=== PATIENT | male | born 1945 | race Caucasian/White ===

== ENCOUNTER 2018-09-14 13:58 | Inpatient (IN) | payer OTHER ==
[~2018-09-14] VITALS: Ht 180.3 cm; Wt 112.8 kg
[2018-09-14] MEDS ORDERED: SODIUM CHLORIDE 0.9% 1,000 ML IVB ONE (14:37)
[2018-09-14 15:06] LABS: Basophils # (auto) 0 uL; Basophils % (auto) 0.2 % (0.0-2.0); Eosinophils # (auto) 0 uL; Eosinophils % (auto) 0.2 % (0.0-7.0); Hemoglobin 13.8 g/dL (13.5-17.5); Lymphocytes # (auto) 1.2 uL; Lymphocytes % (auto) 8.1 % (10.0-50.0); Mean Corpuscular Hemoglobin 29.5 pg (28.0-32.0); Mean Corpuscular Hgb Conc. 32.9 g/dL (32.0-36.0); Mean Corpuscular Volume 89.7 fL (80.0-100.0); Monocytes # (auto) 1.2 uL; Neutrophils # (auto) 12.7 uL; Neutrophils % (auto) 83.5 % (37.0-80.0); Platelet Count (auto) 294 10^3/uL (140-450); Red Blood Cells 4.68 10^6/uL (4.5-5.90); Red Cell Distribution Width 15.3 % (11.8-14.3); White Blood Cell 15.2 10^3/uL (4.4-10.8)
[2018-09-14 15:56] LABS: INR 1.03 (0.9-1.15); Partial Thromboplastin Time 24.6 sec (23.64-32.05)
[2018-09-14 16:07] LABS: Albumin 3.6 g/dL (3.4-5.0); Calcium 8.6 mg/dL (8.5-10.1); Potassium 3.3 mmol/L (3.5-5.1)
[2018-09-14 16:12] LABS: BUN/Creatinine Ratio 22.2; Total Protein 6.9 g/dL (6.4-8.2)
[2018-09-14] MEDS ORDERED: ONDANSETRON HCL 4 MG/2 ML VIAL IV PRN (17:30)
[2018-09-14] MEDS ORDERED: MORPHINE SULF INJ 2 MG/ML SYRINGE 1ML IV PRN (17:30)
[2018-09-14] MEDS ORDERED: DEXTROSE (50%) 50ML SYRG IV PRN (17:30)
[2018-09-14] MEDS ORDERED: ACETAMINOPHEN 500 MG TAB PO PRN (17:30)
[2018-09-14] MEDS ORDERED: NITROGLYCERIN 0.4 MG SL TAB SL PRN (17:30)
[2018-09-14] MEDS ORDERED: hydrALAZINE HCL 20 MG/ML VL IV PRN (17:30)
[2018-09-14] MEDS: cefTRIAXone 1GM/50ML D5W 50 ML IV SCH (20:06)
[2018-09-14] MEDS: TAMSULOSIN HYDROCHLORIDE 0.4 MG CAP PO SCH (20:13)
[2018-09-14] MEDS: HYDROcodone-ACET 5/325MG TAB PO PRN (20:16)
--- NOTE | 2018-09-14 21:30 | NUR ---
OPENING NOTE RECEIVED PATIENT FROM ER. NO REPORT RECEIVED. ASSUMING ROLE OF CARE OF PATIENT AT THIS TIME. PATIENT SHOWING NO SIGN OF DISTRESS, SHORTNESS OF BREATH, AND PATIENT STATES PAIN IS 6/10 FROM HEADACHE. PATIENT WILL BE MEDICATED PER PAIN PROTOCOL WHEN AVAILABLE. PATIENT EDUCATED ON PLAN OF CARE FOR THE NIGHT AND PATIENT VERBALIZED UNDERSTANDING. BED LOWERED, CALL LIGHT WITHIN REACH, AND PATIENT EDUCATED ON CALLING BEFORE GETTING OUT OF BED, BED ALARM ON, PATIENT WILL BE ROUNDED ON EVERY HOUR AND NEEDED.
[2018-09-14] MEDS: ATORVASTATIN 20 MG TAB PO SCH (21:58)
[2018-09-14] MEDS: InsuLIN REG 1unit/0.01ml Soln (100units/ml) SC SCH (21:59)
[2018-09-14] MEDS: ACCU-CHEK COMFORT CURVE STRIP VI SCH (21:59)
[2018-09-14] MEDS: SOD CHL 0.9%/ KCL 20MEQ 1,000 ML IV SCH (21:59)
[2018-09-14 22:00] VITALS: BP 101/55
[2018-09-14 22:10] VITALS: BP 101/55
[2018-09-14] MEDS: MORPHINE SULF INJ 2 MG/ML SYRINGE 1ML IV PRN (22:31)
[2018-09-15] MEDS ORDERED: TRAZ100T2 PO (00:32)
[2018-09-15] MEDS ORDERED: LISI-285 PO (00:32)
[2018-09-15] MEDS ORDERED: METF-371 PO (00:32)
[2018-09-15] MEDS ORDERED: ATOR1TAB PO (00:32)
[2018-09-15] MEDS ORDERED: TIZA4TAB9 PO (00:32)
[2018-09-15] MEDS ORDERED: ESCI10TA PO (00:32)
[2018-09-15] MEDS ORDERED: INS7030I SC (00:32)
[2018-09-15] MEDS: MORPHINE SULF INJ 2 MG/ML SYRINGE 1ML IV PRN ×3 (02:14→21:19)
[2018-09-15] MEDS: SOD CHL 0.9%/ KCL 20MEQ 1,000 ML IV SCH ×2 (03:30→13:37)
[2018-09-15 05:01] VITALS: BP 97/58
[2018-09-15] MEDS: ACCU-CHEK COMFORT CURVE STRIP VI SCH ×4 (06:10→21:38)
[2018-09-15] MEDS: InsuLIN REG 1unit/0.01ml Soln (100units/ml) SC SCH ×4 (06:10→21:36)
[2018-09-15 06:29] LABS: Basophils # (auto) 0.1 uL; Basophils % (auto) 0.6 % (0.0-2.0); Eosinophils # (auto) 0.1 uL; Eosinophils % (auto) 1.2 % (0.0-7.0); Hematocrit 38.5 % (41.0-53.0); Hemoglobin 12.8 g/dL (13.5-17.5); Lymphocytes # (auto) 2.4 uL; Lymphocytes % (auto) 24.2 % (10.0-50.0); Mean Corpuscular Hemoglobin 29.5 pg (28.0-32.0); Mean Corpuscular Hgb Conc. 33.3 g/dL (32.0-36.0); Mean Corpuscular Volume 88.5 fL (80.0-100.0); Monocytes % (auto) 10.2 % (0.0-12.0); Neutrophils # (auto) 6.4 uL; Neutrophils % (auto) 63.8 % (37.0-80.0); Platelet Count (auto) 264 10^3/uL (140-450); Red Blood Cells 4.35 10^6/uL (4.5-5.90)
[2018-09-15 07:00] LABS: Potassium 3.3 mmol/L (3.5-5.1)
--- NOTE | 2018-09-15 07:05 | NUR ---
Opening Shift Note Assumed care of patient, awake and alert. No S/S of distress/SOB or pain. Instructed on POC and to call for assist PRN, will continue to monitor for changes Q1hr and PRN. Bed locked in lowest position with two side rails up and call light in reach. instructed patient on the plan of care and to call as needed. Educated patient on the need to call before exiting bed.
[2018-09-15 07:22] LABS: BUN/Creatinine Ratio 27.1; Bilirubin, Total 0.8 mg/dL (0.2-1.0); Calcium 8.1 mg/dL (8.5-10.1); Total Protein 6.1 g/dL (6.4-8.2)
[2018-09-15 08:00] VITALS: BP 115/74
[2018-09-15] MEDS: HYDROcodone-ACET 5/325MG TAB PO PRN (08:49)
[2018-09-15 09:00] VITALS: BP 92/50
[2018-09-15] MEDS: cefTRIAXone 1GM/50ML D5W 50 ML IV SCH (09:54)
[2018-09-15] MEDS: FAMOTIDINE 20 MG TAB PO SCH (09:54)
[2018-09-15] MEDS: ASPirin-EC 81 mg tab PO SCH (09:55)
[2018-09-15] MEDS: LISINOPRIL 10 MG TAB PO SCH (10:00)
[2018-09-15] MEDS ORDERED: POTASSIUM CHL 20 Meq TABLET PO ONE (10:30)
[2018-09-15] MEDS ORDERED: OPTISON 3ml Vial for INJ IV ONE (11:43)
[2018-09-15 12:30] VITALS: BP 102/62
--- NOTE | 2018-09-15 16:34 | NUR ---
CALLED AND SPOKE TO SHARMAINE ARRIAZA AND GOT ORDERS FOR NORCO 7.5 MG AND ONE TIME DOSE OF TORADOL 30 MG IV ONCE
[2018-09-15] MEDS ORDERED: KETOROLAC TROMETH 15 mg/ml 1ML VL IV ONE (16:45)
[2018-09-15] MEDS ORDERED: HYDROcodone-ACET 7.5/325MG TAB PO PRN (16:45)
[2018-09-15 17:11] VITALS: BP 98/66
--- NOTE | 2018-09-15 17:54 | NUR ---
SPOKE TO DAUGHTER LOBO AND UPDATED ON PLAN OF CARE, ANSWERED ALL QUESTIONS AND CONCERNS.
--- NOTE | 2018-09-15 17:54 | NUR ---
PAGED HOSPITALIST SHARMAINE ARRIAZA TO DISCUSS PATIENTS CONCERNS OF NOT RECEIVING HIS INSULIN 70/30 16 UNITS BID. PER SHARMAINE ARRIAZA START PATIENT OFF AT 1/2 THE NORMAL DOSE DUE TO DIET CONTROL. 70/30 8 UNITS BID. WILL IMPLEMENT ORDERS.
[2018-09-15] MEDS: TAMSULOSIN HYDROCHLORIDE 0.4 MG CAP PO SCH (18:00)
[2018-09-15] MEDS ORDERED: HYDROmorphone HCL 2 MG/ML VL IV ONE (18:15)
--- NOTE | 2018-09-15 18:15 | NUR ---
SHARMAINE ARRIAZA ROUNDING TO SEE PATIENT. ANSWERED ALL QUESTIONS AND CONCERNS. ORDERS ARE BEING PLACED AND PATIENT VERBALIZED UNDERSTANDING.
[2018-09-15] MEDS: LORazepam 0.5 MG TAB PO PRN (18:16)
--- NOTE | 2018-09-15 18:22 | NUR ---
ADMINISTERED ATIVAN ABD ONE TIME DOSE OF DILAUDID 0.5 MG. PATIENT EATING DINNER AND HAPPY WITH EXTRA PORTION GIVEN. PER LORAINE ARRIAZA DIET WAS INCREASED SO PATIENT WILL GET MORE TO EAT.
--- NOTE | 2018-09-15 19:20 | NUR ---
Opening Shift Note Report received from day shift RN. Assumed care of patient. patient sitting in bed awake and alert x4. Family at bedside. No S/S of distress/SOB noted. Patient complained of pain to neck area. Will medicate as ordered. Instructed on POC and to call for assistance when getting out of bed. Bed left in lowest position and call light left within reach. Will continue to monitor for changes Q1hr and PRN.
--- NOTE | 2018-09-15 19:22 | NUR ---
DR. SILVA AT BEDSIDE DISCUSSING PLAN OF CARE WITH PATIENT AND FAMILY.
[2018-09-15] MEDS: ATORVASTATIN 20 MG TAB PO SCH (21:18)
[2018-09-15 21:51] VITALS: BP 117/72
[2018-09-16] MEDS: MORPHINE SULF INJ 2 MG/ML SYRINGE 1ML IV PRN ×4 (01:46→23:39)
[2018-09-16] MEDS: SOD CHL 0.9%/ KCL 20MEQ 1,000 ML IV SCH ×3 (02:18→23:39)
[2018-09-16 04:51] VITALS: BP 102/58
[2018-09-16] MEDS: LORazepam 0.5 MG TAB PO PRN (05:18)
[2018-09-16 06:48] LABS: BUN/Creatinine Ratio 25.3; Magnesium 1.9 mg/dL (1.6-2.6); Potassium 4.4 mmol/L (3.5-5.1)
[2018-09-16] MEDS: InsuLIN REG 1unit/0.01ml Soln (100units/ml) SC SCH ×4 (07:00→21:38)
--- NOTE | 2018-09-16 07:15 | NUR ---
Opening Shift Note Assumed care of patient, who is asleep wt this time will come back and re assess. No S/S of distress/SOB or pain, will continue to monitor for changes Q1hr and PRN. Bed locked in lowest position with two side rails up and call light in reach.
--- NOTE | 2018-09-16 07:51 | NUR ---
closing note Endorsed care to day shift RN. patient sitting in bed no s/s of distress or SOB noted.
[2018-09-16 08:00] VITALS: BP 108/67
[2018-09-16] MEDS: INSULIN 70/30 1unit/0.01ml Susp (100units/ml) SC SCH ×2 (08:20→17:55)
[2018-09-16] MEDS: cefTRIAXone 1GM/50ML D5W 50 ML IV SCH (08:21)
[2018-09-16 09:00] VITALS: BP 108/67
[2018-09-16] MEDS: LISINOPRIL 10 MG TAB PO SCH (10:00)
[2018-09-16] MEDS: FAMOTIDINE 20 MG TAB PO SCH (10:00)
[2018-09-16] MEDS: ASPirin-EC 81 mg tab PO SCH (10:44)
[2018-09-16] MEDS: ACCU-CHEK COMFORT CURVE STRIP VI SCH ×4 (11:30→21:38)
--- NOTE | 2018-09-16 12:41 | NUR ---
ROUNDS DISCONNECTED PATIENT FROM IV FOR MRI, PATIENT DOWN AT MRI.
--- NOTE | 2018-09-16 12:52 | NUR ---
CALLED ECHO DEPARTMENT FOR UPDATE ON ECHO RESULTS, NO ANSWER AT EXT [id number] TRIED AGAIN HAVING PBX TRANSFER AND AGAIN NO ANSWER, WILL TRY AGAIN LATER THIS AFTERNOON.
[2018-09-16 13:00] VITALS: BP 109/65
--- NOTE | 2018-09-16 16:10 | NUR ---
EEG COMPLETED AT BEDSIDE. JAMES SMILEY AWARE.
[2018-09-16 16:38] VITALS: BP 109/64
[2018-09-16] MEDS: TAMSULOSIN HYDROCHLORIDE 0.4 MG CAP PO SCH (16:57)
--- NOTE | 2018-09-16 19:10 | NUR ---
Opening Shift Note Report received from day shift RN. Assumed care of patient. patient sitting in bed awake and alert x4. No S/S of distress/SOB noted. Patient complained of pain to neck area. Will medicate as ordered. Instructed on POC and to call for assistance when getting out of bed. Bed left in lowest position and call light left within reach. Will continue to monitor for changes Q1hr and PRN.
[2018-09-16] MEDS: ATORVASTATIN 20 MG TAB PO SCH (21:31)
[2018-09-16 22:00] VITALS: BP 119/81
[2018-09-17 04:50] VITALS: BP 128/73
[2018-09-17] MEDS: SOD CHL 0.9%/ KCL 20MEQ 1,000 ML IV SCH (05:30)
[2018-09-17 06:22] LABS: Basophils # (auto) 0.1 uL; Basophils % (auto) 0.8 % (0.0-2.0); Eosinophils # (auto) 0.2 uL; Hematocrit 39.1 % (41.0-53.0); Hemoglobin 13.2 g/dL (13.5-17.5); Lymphocytes # (auto) 2.2 uL; Lymphocytes % (auto) 27.5 % (10.0-50.0); Mean Corpuscular Hemoglobin 30.1 pg (28.0-32.0); Mean Corpuscular Hgb Conc. 33.7 g/dL (32.0-36.0); Mean Corpuscular Volume 89.3 fL (80.0-100.0); Monocytes # (auto) 0.7 uL; Monocytes % (auto) 8.9 % (0.0-12.0); Neutrophils # (auto) 4.8 uL; Neutrophils % (auto) 60.8 % (37.0-80.0); Platelet Count (auto) 257 10^3/uL (140-450); Red Blood Cells 4.38 10^6/uL (4.5-5.90); Red Cell Distribution Width 15.2 % (11.8-14.3); White Blood Cell 7.8 10^3/uL (4.4-10.8)
[2018-09-17 06:39] LABS: Potassium 4.3 mmol/L (3.5-5.1)
[2018-09-17 06:51] LABS: BUN/Creatinine Ratio 21.3; Calcium 8.1 mg/dL (8.5-10.1)
[2018-09-17] MEDS: InsuLIN REG 1unit/0.01ml Soln (100units/ml) SC SCH ×2 (06:52→11:51)
[2018-09-17] MEDS: ACCU-CHEK COMFORT CURVE STRIP VI SCH ×2 (06:52→11:51)
--- NOTE | 2018-09-17 07:26 | NUR ---
Closing note Endorsed care to day shift RN. patient sitting in bed no s/s of distress or SOB noted.
--- NOTE | 2018-09-17 07:30 | NUR ---
Opening Shift Note Assumed care of patient, awake and alert. No S/S of distress/SOB or pain. Instructed on POC and to call for assist PRN, will continue to monitor for changes Q1hr and PRN.
[2018-09-17] MEDS: INSULIN 70/30 1unit/0.01ml Susp (100units/ml) SC SCH (08:18)
[2018-09-17 08:25] VITALS: BP 135/93
[2018-09-17] MEDS: cefTRIAXone 1GM/50ML D5W 50 ML IV SCH (09:41)
[2018-09-17] MEDS: MORPHINE SULF INJ 2 MG/ML SYRINGE 1ML IV PRN (09:41)
[2018-09-17] MEDS: ASPirin-EC 81 mg tab PO SCH (09:41)
[2018-09-17] MEDS: FAMOTIDINE 20 MG TAB PO SCH (09:41)
--- NOTE | 2018-09-17 10:00 | NUR ---
Dr. Bronson in to see patient for neurology follow up.
[2018-09-17 12:30] VITALS: BP 115/63
--- NOTE | 2018-09-17 15:20 | NUR ---
Niranjan Wong in to see patient as hospitalist.
[2018-09-17 15:32] VITALS: BP 108/67
--- NOTE | 2018-09-17 16:10 | NUR ---
Patient given phone number and address for Dr. Bronson, neurologist. Patient instructed to follow up with Dr. Bronson.
== END 2018-09-17 16:10 | disposition home or self-care (01) | DRG 314 ==
LOC: ER 13:58 → TELE 13:59 → TELE-WESTW 21:37
PROVIDERS: ADMIT Nurse Practitioner Acute Care; ATTEND Internal Medicine
DX: I95.9 Hypotension, unspecified (principal); N17.0 Acute kidney failure with tubular necrosis; J98.11 Atelectasis; J91.8 Pleural effusion in other conditions classified elsewhere; J44.9 Chronic obstructive pulmonary disease, unspecified; E11.42 Type 2 diabetes mellitus with diabetic polyneuropathy; E11.22 Type 2 diabetes mellitus with diabetic chronic kidney disease; E86.0 Dehydration; I12.9 Hypertensive chronic kidney disease with stage 1 through stage 4 chronic kidney disease, or unspecified chronic kidney disease; I70.0 Atherosclerosis of aorta; E78.00 Pure hypercholesterolemia, unspecified; N18.3 Chronic kidney disease, stage 3 (moderate); E87.6 Hypokalemia; N40.0 Benign prostatic hyperplasia without lower urinary tract symptoms; F12.90 Cannabis use, unspecified, uncomplicated; E78.5 Hyperlipidemia, unspecified; I67.2 Cerebral atherosclerosis; R00.1 Bradycardia, unspecified; E11.21 Type 2 diabetes mellitus with diabetic nephropathy; D72.829 Elevated white blood cell count, unspecified; E66.9 Obesity, unspecified; Z82.49 Family history of ischemic heart disease and other diseases of the circulatory system; Z87.891 Personal history of nicotine dependence; Z80.1 Family history of malignant neoplasm of trachea, bronchus and lung; Z79.4 Long term (current) use of insulin; Z68.34 Body mass index [BMI] 34.0-34.9, adult; Z79.899 Other long term (current) drug therapy
CPT/HCPCS: 36415; 70450; 70551; 71045; 72125; 80048; 80053; 80061; 82962; 83735; 83880; 84443; 84484; 85025; 85610; 85730; 86141; 93005; 93306; 93886; 94761; 95819; 96361; 96365; G0378; J0696; J1815; Q9956

== ENCOUNTER 2021-12-26 23:48 | Inpatient (IN) | payer OTHER ==
[~2021-12-26] VITALS: Ht 185.4 cm; Wt 107.3 kg
[~2021-12-26 23:48] MED LIST: ATOR-47 PO; ESCI10TA PO; INS7030I SC; LISI-285 PO; METF-371 PO; TIZA4TAB9 PO; TRAZ100T3 PO
[2021-12-27] MEDS ORDERED: VANCOMYCIN 1GM/250ML 250 ML IV ONE (00:45)
[2021-12-27 01:17] LABS: Basophils # (auto) 0.1 10 ^3/uL (0-0.2); Basophils % (auto) 0.5 % (0.0-2.0); Eosinophils # (auto) 0.2 10 ^3/uL (0-0.8); Eosinophils % (auto) 1.2 % (0.0-7.0); Hematocrit 41.9 % (41.0-53.0); Lymphocytes # (auto) 1.9 10 ^3/uL (0.4-5.4); Lymphocytes % (auto) 13.7 % (10.0-50.0); Mean Corpuscular Hemoglobin 29.7 pg (28.0-32.0); Mean Corpuscular Hgb Conc. 33.5 g/dL (32.0-36.0); Mean Corpuscular Volume 88.8 fL (80.0-100.0); Monocytes # (auto) 1.2 10 ^3/uL (0-1.3); Neutrophils # (auto) 10.4 10 ^3/uL (1.6-8.6); Neutrophils % (auto) 75.6 % (37.0-80.0); Nucleated Red Blood Cells % 0.1 %; Red Blood Cells 4.71 10^6/uL (4.5-5.90); Red Cell Distribution Width 14.8 % (11.8-14.3); White Blood Cell 13.7 10^3/uL (4.4-10.8)
[2021-12-27 01:30] LABS: Albumin 3.7 g/dL (3.4-5.0); Calcium 8.4 mg/dL (8.5-10.1); Potassium 4.4 mmol/L (3.5-5.1)
[2021-12-27 01:36] LABS: Lactic Acid w/Reflex 2.1 mmol/L (0.4-2.0)
[2021-12-27 01:38] LABS: BUN/Creatinine Ratio 13.2; Bilirubin, Total 0.6 mg/dL (0.2-1.0); CRP High Sensitivity 1.1 mg/dL (< 0.3); Total Protein 6.8 g/dL (6.4-8.2)
[2021-12-27] MEDS ORDERED: fentaNYL CITRATE 100 MCG/2 ML VL IV ONE (02:45)
[2021-12-27] MEDS ORDERED: ONDANSETRON HCL 4 MG/2 ML VIAL IV PRN (03:15)
[2021-12-27] MEDS ORDERED: DEXTROSE (50%) 50ML SYRG IV PRN (03:15)
[2021-12-27] MEDS ORDERED: ACETAMINOPHEN 325 MG TAB PO PRN (03:15)
[2021-12-27] MEDS ORDERED: VANCOMYCIN PER PHARMACY 0 MG IV SCH (03:15)
[2021-12-27] MEDS ORDERED: DOCUSATE SOD 100 MG CAP PO PRN (03:15)
[2021-12-27] MEDS ORDERED: ONDANSETRON HCL 4 MG/2 ML VIAL IV ONE (03:30)
[2021-12-27] MEDS: SODIUM CHLORIDE 0.9% 1,000 ML IV SCH ×2 (03:44→19:55)
[2021-12-27] MEDS: MORPHINE SULFATE INJ 2 MG/ml SYRG IV PRN ×4 (05:38→23:51)
[2021-12-27 06:04] LABS: Basophils # (auto) 0.1 10 ^3/uL (0-0.2); Basophils % (auto) 0.4 % (0.0-2.0); Eosinophils # (auto) 0.1 10 ^3/uL (0-0.8); Eosinophils % (auto) 0.9 % (0.0-7.0); Hematocrit 40.2 % (41.0-53.0); Hemoglobin 13.3 g/dL (13.5-17.5); Lymphocytes # (auto) 1.5 10 ^3/uL (0.4-5.4); Lymphocytes % (auto) 11.4 % (10.0-50.0); Mean Corpuscular Hemoglobin 28.7 pg (28.0-32.0); Mean Corpuscular Hgb Conc. 33.1 g/dL (32.0-36.0); Mean Corpuscular Volume 86.8 fL (80.0-100.0); Monocytes # (auto) 1.2 10 ^3/uL (0-1.3); Monocytes % (auto) 9.5 % (0.0-12.0); Neutrophils # (auto) 10.2 10 ^3/uL (1.6-8.6); Neutrophils % (auto) 77.8 % (37.0-80.0); Red Blood Cells 4.63 10^6/uL (4.5-5.90); Red Cell Distribution Width 14.8 % (11.8-14.3); White Blood Cell 13.1 10^3/uL (4.4-10.8)
[2021-12-27 06:19] LABS: Potassium 3.9 mmol/L (3.5-5.1)
[2021-12-27 06:25] LABS: Albumin 3.3 g/dL (3.4-5.0); BUN/Creatinine Ratio 17.2; Calcium 8.2 mg/dL (8.5-10.1)
[2021-12-27 06:29] LABS: Bilirubin, Total 0.5 mg/dL (0.2-1.0)
[2021-12-27] MEDS: InsuLIN REG 1unit/0.01ml Soln (100units/ml) SC SCH ×4 (06:50→21:26)
[2021-12-27] MEDS: ACCU-CHEK COMFORT CURVE STRIP VI SCH ×4 (06:50→21:16)
[2021-12-27] MEDS ORDERED: NITROGLYCERIN 0.4 MG SL TAB SL PRN (07:00)
[2021-12-27] MEDS ORDERED: MORPHINE SULFATE INJ 2 MG/ml SYRG IV PRN (07:00)
[2021-12-27] MEDS ORDERED: ALBUMIN 25% 100 ML IV ONE (07:00)
[2021-12-27] MEDS: HYDROcodone-ACET 5/325MG TAB PO PRN ×3 (07:51→21:28)
[2021-12-27] MEDS: ENOXAPARIN SOD 40 MG/0.4 ML SYRINGE SC SCH (09:31)
[2021-12-27 13:01] LABS: Urine Bacteria NONE SEEN /hpf (None Seen); Urine Blood Negative /uL (Negative); Urine Mucus FEW (None Seen); Urine Specific Gravity 1.019 (1.001-1.035); Urine WBC 4 /hpf (0 - 3)
[2021-12-27] MEDS: VANCOMYCIN 1GM/250ML 250 ML IV SCH (15:44)
[2021-12-27 22:00] VITALS: BP 114/56
[2021-12-28] MEDS: VANCOMYCIN 1GM/250ML 250 ML IV SCH ×2 (02:30→15:46)
[2021-12-28] MEDS: TEMAZEPAM 15 MG CAP PO PRN (02:35)
[2021-12-28 04:59] VITALS: BP 112/52
[2021-12-28 05:25] LABS: Basophils # (auto) 0 10 ^3/uL (0-0.2); Basophils % (auto) 0.4 % (0.0-2.0); Eosinophils # (auto) 0.2 10 ^3/uL (0-0.8); Eosinophils % (auto) 1.6 % (0.0-7.0); Hematocrit 37.1 % (41.0-53.0); Hemoglobin 12.4 g/dL (13.5-17.5); Lymphocytes # (auto) 1.7 10 ^3/uL (0.4-5.4); Lymphocytes % (auto) 13.9 % (10.0-50.0); Mean Corpuscular Hgb Conc. 33.4 g/dL (32.0-36.0); Monocytes # (auto) 1.1 10 ^3/uL (0-1.3); Monocytes % (auto) 9.6 % (0.0-12.0); Neutrophils # (auto) 8.9 10 ^3/uL (1.6-8.6); Neutrophils % (auto) 74.5 % (37.0-80.0); Nucleated Red Blood Cells % 0.1 %; Red Blood Cells 4.27 10^6/uL (4.5-5.90); Red Cell Distribution Width 14.4 % (11.8-14.3)
[2021-12-28] MEDS: MORPHINE SULFATE INJ 2 MG/ml SYRG IV PRN ×4 (05:41→21:58)
[2021-12-28] MEDS: ACCU-CHEK COMFORT CURVE STRIP VI SCH ×4 (05:41→21:58)
[2021-12-28 05:44] LABS: Albumin 3.2 g/dL (3.4-5.0); BUN/Creatinine Ratio 16.5; Calcium 7.8 mg/dL (8.5-10.1); Magnesium 1.4 mg/dL (1.6-2.6); Potassium 3.9 mmol/L (3.5-5.1)
[2021-12-28 05:46] LABS: Bilirubin, Total 0.8 mg/dL (0.2-1.0); Total Protein 6.4 g/dL (6.4-8.2)
[2021-12-28] MEDS: InsuLIN REG 1unit/0.01ml Soln (100units/ml) SC SCH ×4 (05:46→22:08)
[2021-12-28] MEDS: HYDROcodone-ACET 5/325MG TAB PO PRN ×2 (07:46→11:35)
[2021-12-28 08:20] VITALS: BP 110/44
[2021-12-28 08:54] VITALS: BP 110/44
[2021-12-28] MEDS: CEFTRIAXONE SODIUM 2 GM in D5W 5% 50 ML IV SCH (10:15)
[2021-12-28] MEDS: ENOXAPARIN SOD 40 MG/0.4 ML SYRINGE SC SCH (10:28)
[2021-12-28] MEDS: SODIUM CHLORIDE 0.9% 1,000 ML IV SCH ×3 (12:14→16:16)
[2021-12-28 12:43] VITALS: BP 120/45
[2021-12-28 17:03] VITALS: BP 130/68
[2021-12-28] MEDS: ALPRAZolam 0.25 MG TAB PO PRN (20:05)
[2021-12-28 22:00] VITALS: BP 114/58
[2021-12-29] MEDS: TEMAZEPAM 15 MG CAP PO PRN (03:19)
[2021-12-29] MEDS: VANCOMYCIN 1GM/250ML 250 ML IV SCH ×3 (03:19→21:20)
[2021-12-29] MEDS: MORPHINE SULFATE INJ 2 MG/ml SYRG IV PRN ×3 (04:32→18:32)
[2021-12-29 05:00] VITALS: BP 124/77
[2021-12-29] MEDS: ACCU-CHEK COMFORT CURVE STRIP VI SCH ×4 (06:27→21:26)
[2021-12-29] MEDS: InsuLIN REG 1unit/0.01ml Soln (100units/ml) SC SCH ×4 (06:28→21:32)
[2021-12-29] MEDS: SODIUM CHLORIDE 0.9% 1,000 ML IV SCH (06:28)
[2021-12-29] MEDS: CEFTRIAXONE SODIUM 2 GM in D5W 5% 50 ML IV SCH (09:22)
[2021-12-29] MEDS: ENOXAPARIN SOD 40 MG/0.4 ML SYRINGE SC SCH (09:23)
[2021-12-29] MEDS: ALPRAZolam 0.25 MG TAB PO PRN ×2 (09:28→19:48)
[2021-12-29 09:30] VITALS: BP 140/60
[2021-12-29 12:30] VITALS: BP 122/65
[2021-12-29 22:00] VITALS: BP 123/61
[2021-12-30] MEDS: MORPHINE SULFATE INJ 2 MG/ml SYRG IV PRN ×4 (03:03→22:37)
[2021-12-30 05:00] VITALS: BP 107/57
[2021-12-30] MEDS: SODIUM CHLORIDE 0.9% 1,000 ML IV SCH (05:57)
[2021-12-30 06:28] LABS: BUN/Creatinine Ratio 17.6; Calcium 8.3 mg/dL (8.5-10.1); Magnesium 1.7 mg/dL (1.6-2.6)
[2021-12-30] MEDS: InsuLIN REG 1unit/0.01ml Soln (100units/ml) SC SCH ×4 (06:29→21:35)
[2021-12-30] MEDS: ACCU-CHEK COMFORT CURVE STRIP VI SCH ×4 (06:30→21:34)
[2021-12-30 06:48] LABS: Basophils # (auto) 0 10 ^3/uL (0-0.2); Basophils % (auto) 0.6 % (0.0-2.0); Eosinophils # (auto) 0.2 10 ^3/uL (0-0.8); Eosinophils % (auto) 2.8 % (0.0-7.0); Hematocrit 38.5 % (41.0-53.0); Hemoglobin 13.1 g/dL (13.5-17.5); Lymphocytes # (auto) 1.6 10 ^3/uL (0.4-5.4); Lymphocytes % (auto) 18.4 % (10.0-50.0); Mean Corpuscular Hemoglobin 29.7 pg (28.0-32.0); Mean Corpuscular Volume 87.3 fL (80.0-100.0); Monocytes # (auto) 0.9 10 ^3/uL (0-1.3); Monocytes % (auto) 10.6 % (0.0-12.0); Neutrophils # (auto) 5.9 10 ^3/uL (1.6-8.6); Neutrophils % (auto) 67.6 % (37.0-80.0); Red Blood Cells 4.41 10^6/uL (4.5-5.90); Red Cell Distribution Width 14.3 % (11.8-14.3); White Blood Cell 8.8 10^3/uL (4.4-10.8)
[2021-12-30] MEDS: VANCOMYCIN 1GM/250ML 250 ML IV SCH ×2 (08:31→18:21)
[2021-12-30] MEDS: ENOXAPARIN SOD 40 MG/0.4 ML SYRINGE SC SCH (08:31)
[2021-12-30 08:49] VITALS: BP 122/52
[2021-12-30] MEDS: CEFTRIAXONE SODIUM 2 GM in D5W 5% 50 ML IV SCH (10:49)
[2021-12-30] MEDS: INSULIN LANTUS (GLARGINE) 1 /0.01ml (100units/ml) SC SCH ×2 (10:54→21:35)
[2021-12-30 13:30] VITALS: BP 120/59
[2021-12-30 17:07] VITALS: BP 121/48
[2021-12-30] MEDS: ALPRAZolam 0.25 MG TAB PO PRN (20:05)
[2021-12-30 22:00] VITALS: BP 108/63
[2021-12-30] MEDS: TEMAZEPAM 15 MG CAP PO PRN (22:37)
[2021-12-31] MEDS: VANCOMYCIN 1GM/250ML 250 ML IV SCH ×3 (03:53→23:32)
[2021-12-31] MEDS: SODIUM CHLORIDE 0.9% 1,000 ML IV SCH ×2 (04:02→23:55)
[2021-12-31 05:00] VITALS: BP 123/67
[2021-12-31] MEDS: INSULIN LANTUS (GLARGINE) 1 /0.01ml (100units/ml) SC SCH ×2 (06:27→22:18)
[2021-12-31] MEDS: ACCU-CHEK COMFORT CURVE STRIP VI SCH ×4 (06:27→22:07)
[2021-12-31] MEDS: InsuLIN REG 1unit/0.01ml Soln (100units/ml) SC SCH ×5 (06:28→22:18)
[2021-12-31 09:00] VITALS: BP 112/69
[2021-12-31] MEDS: CEFTRIAXONE SODIUM 2 GM in D5W 5% 50 ML IV SCH (09:43)
[2021-12-31] MEDS: ENOXAPARIN SOD 40 MG/0.4 ML SYRINGE SC SCH (09:44)
[2021-12-31] MEDS: MORPHINE SULFATE INJ 2 MG/ml SYRG IV PRN ×2 (12:08→20:56)
[2021-12-31 13:00] VITALS: BP 125/66
[2021-12-31] MEDS: ALPRAZolam 0.25 MG TAB PO PRN (15:56)
[2021-12-31 17:29] VITALS: BP 137/64
[2021-12-31 21:42] VITALS: BP 129/52
[2021-12-31] MEDS: ALPRAZolam 0.5 MG TAB PO PRN (22:08)
[2022-01-01] MEDS: ACCU-CHEK COMFORT CURVE STRIP VI SCH ×4 (05:35→22:04)
[2022-01-01] MEDS: InsuLIN REG 1unit/0.01ml Soln (100units/ml) SC SCH ×4 (05:35→22:13)
[2022-01-01 05:40] VITALS: BP 136/67
[2022-01-01] MEDS: INSULIN LANTUS (GLARGINE) 1 /0.01ml (100units/ml) SC SCH ×2 (06:26→22:13)
[2022-01-01 09:00] VITALS: BP 118/68
[2022-01-01] MEDS: ENOXAPARIN SOD 40 MG/0.4 ML SYRINGE SC SCH (09:29)
[2022-01-01] MEDS: VANCOMYCIN 1GM/250ML 250 ML IV SCH ×2 (09:29→20:14)
[2022-01-01] MEDS: MORPHINE SULFATE INJ 2 MG/ml SYRG IV PRN ×3 (09:42→20:16)
[2022-01-01] MEDS: CEFTRIAXONE SODIUM 2 GM in D5W 5% 50 ML IV SCH (11:40)
[2022-01-01] MEDS: ALPRAZolam 0.5 MG TAB PO PRN (11:48)
[2022-01-01 12:00] VITALS: BP 122/60
[2022-01-01 15:20] LABS: INR 1.07 (0.9-1.15); Partial Thromboplastin Time 26.1 sec (24.6-33.4)
[2022-01-01 16:00] VITALS: BP 113/65
[2022-01-01] MEDS: SODIUM CHLORIDE 0.9% 1,000 ML IV SCH (16:35)
[2022-01-01 22:00] VITALS: BP 122/57
[2022-01-01] MEDS: DAKINS QUARTER STR 0.125% (NaHypochlorite) 473 ML TOPICAL SOL TOP SCH (22:00)
[2022-01-02] MEDS: MORPHINE SULFATE INJ 2 MG/ml SYRG IV PRN (02:19)
[2022-01-02 05:00] VITALS: BP 113/58
[2022-01-02 05:09] LABS: Basophils # (auto) 0.1 10 ^3/uL (0-0.2); Basophils % (auto) 0.9 % (0.0-2.0); Eosinophils # (auto) 0.3 10 ^3/uL (0-0.8); Eosinophils % (auto) 2.9 % (0.0-7.0); Hematocrit 40.3 % (41.0-53.0); Hemoglobin 13.7 g/dL (13.5-17.5); Lymphocytes # (auto) 1.9 10 ^3/uL (0.4-5.4); Lymphocytes % (auto) 20.6 % (10.0-50.0); Mean Corpuscular Hemoglobin 29.1 pg (28.0-32.0); Mean Corpuscular Hgb Conc. 33.9 g/dL (32.0-36.0); Mean Corpuscular Volume 85.9 fL (80.0-100.0); Monocytes # (auto) 1.1 10 ^3/uL (0-1.3); Monocytes % (auto) 11.7 % (0.0-12.0); Neutrophils # (auto) 5.8 10 ^3/uL (1.6-8.6); Neutrophils % (auto) 63.9 % (37.0-80.0); Nucleated Red Blood Cells % 0.1 %; Red Cell Distribution Width 14.2 % (11.8-14.3); White Blood Cell 9.1 10^3/uL (4.4-10.8)
[2022-01-02 05:31] LABS: BUN/Creatinine Ratio 27.4; Calcium 8.4 mg/dL (8.5-10.1); Magnesium 1.9 mg/dL (1.6-2.6); Potassium 4.2 mmol/L (3.5-5.1)
[2022-01-02] MEDS: VANCOMYCIN 1GM/250ML 250 ML IV SCH ×2 (05:36→16:21)
[2022-01-02] MEDS: ACCU-CHEK COMFORT CURVE STRIP VI SCH ×4 (06:32→22:00)
[2022-01-02] MEDS: INSULIN LANTUS (GLARGINE) 1 /0.01ml (100units/ml) SC SCH ×2 (06:32→22:00)
[2022-01-02] MEDS: InsuLIN REG 1unit/0.01ml Soln (100units/ml) SC SCH ×4 (06:33→22:00)
[2022-01-02] MEDS ORDERED: LIDOCAINE 1%HCL (LOCAL ANESTH) 10 ML MDV ONE ×2 (07:09→07:10)
[2022-01-02] MEDS ORDERED: BUPIVACAINE 0.25% INJ 50ML VIAL ONE ×2 (07:09→07:10)
[2022-01-02] MEDS ORDERED: MEPERIDINE HCL (25 MG/ML) 1ML VIAL ONE (07:31)
[2022-01-02] MEDS ORDERED: MIDAZOLAM HCL 2MG/2ML 2ml VIAL (1mg/ml) ONE (07:32)
[2022-01-02] MEDS ORDERED: fentaNYL CITRATE 100 MCG/2 ML VL ONE (07:32)
[2022-01-02] MEDS ORDERED: DAKINS HALF STR 0.25% (NaHypochlorite) 473 ML TOPICAL SOL TOP ONE (07:45)
[2022-01-02] MEDS ORDERED: DexAMETHasone SOD PHOS 10MG/1ML VIAL INJ ONE (08:03)
[2022-01-02] MEDS ORDERED: PROPOFOL 10 MG/ML 20 ML IV ONE (08:03)
[2022-01-02] MEDS: DAKINS QUARTER STR 0.125% (NaHypochlorite) 473 ML TOPICAL SOL TOP SCH ×2 (10:00→22:00)
[2022-01-02 12:00] VITALS: BP 142/75
[2022-01-02] MEDS: ENOXAPARIN SOD 40 MG/0.4 ML SYRINGE SC SCH (12:33)
[2022-01-02] MEDS: CEFTRIAXONE SODIUM 2 GM in D5W 5% 50 ML IV SCH (12:33)
[2022-01-02] MEDS: SODIUM CHLORIDE 0.9% 1,000 ML IV SCH ×2 (12:50→16:21)
[2022-01-02] MEDS: HYDROmorphone HCL 2 MG/ML VL/or syr IV PRN ×4 (12:50→23:35)
[2022-01-02 16:00] VITALS: BP 122/59
[2022-01-02] MEDS: metroNIDAZOLE 500 MG TAB PO SCH ×2 (16:19→22:00)
[2022-01-02 21:16] VITALS: BP 124/54
[2022-01-03] MEDS: VANCOMYCIN 1GM/250ML 250 ML IV SCH ×3 (02:33→22:47)
[2022-01-03] MEDS: HYDROmorphone HCL 2 MG/ML VL/or syr IV PRN ×6 (02:34→22:58)
[2022-01-03 04:43] VITALS: BP 121/59
[2022-01-03] MEDS: metroNIDAZOLE 500 MG TAB PO SCH ×3 (06:22→22:47)
[2022-01-03] MEDS: InsuLIN REG 1unit/0.01ml Soln (100units/ml) SC SCH ×4 (06:26→22:32)
[2022-01-03] MEDS: INSULIN LANTUS (GLARGINE) 1 /0.01ml (100units/ml) SC SCH ×2 (06:26→22:32)
[2022-01-03] MEDS: ACCU-CHEK COMFORT CURVE STRIP VI SCH ×4 (06:27→22:47)
[2022-01-03 09:00] VITALS: BP 120/84
[2022-01-03] MEDS: DAKINS QUARTER STR 0.125% (NaHypochlorite) 473 ML TOPICAL SOL TOP SCH ×2 (10:00→22:00)
[2022-01-03] MEDS: CITALOPRAM HYDROBR 20 MG TAB PO SCH (10:19)
[2022-01-03] MEDS: CEFTRIAXONE SODIUM 2 GM in D5W 5% 50 ML IV SCH (10:24)
[2022-01-03] MEDS: ENOXAPARIN SOD 40 MG/0.4 ML SYRINGE SC SCH (10:25)
[2022-01-03 12:00] VITALS: BP 129/55
[2022-01-03] MEDS ORDERED: LIDOCAINE 1% (LOCAL ANESTH.) PF 5ml SDV ID ONE (16:15)
[2022-01-03 17:00] VITALS: BP 113/49
[2022-01-03 22:00] VITALS: BP 144/70
[2022-01-03] MEDS: SODIUM CHLOR 0.9% PF (SALINE LOCK) 10ML VIAL/SYR IV SCH (22:47)
[2022-01-04] MEDS: TEMAZEPAM 15 MG CAP PO PRN ×2 (00:01→22:21)
[2022-01-04] MEDS: HYDROmorphone HCL 2 MG/ML VL/or syr IV PRN ×7 (02:01→23:59)
[2022-01-04 05:00] VITALS: BP 100/68
[2022-01-04] MEDS: InsuLIN REG 1unit/0.01ml Soln (100units/ml) SC SCH ×4 (06:30→22:31)
[2022-01-04] MEDS: metroNIDAZOLE 500 MG TAB PO SCH ×3 (06:30→22:20)
[2022-01-04] MEDS: ACCU-CHEK COMFORT CURVE STRIP VI SCH ×4 (06:30→22:21)
[2022-01-04] MEDS: INSULIN LANTUS (GLARGINE) 1 /0.01ml (100units/ml) SC SCH ×2 (06:34→22:30)
[2022-01-04 07:39] LABS: Basophils # (auto) 0.1 10 ^3/uL (0-0.2); Basophils % (auto) 1.1 % (0.0-2.0); Eosinophils # (auto) 0.1 10 ^3/uL (0-0.8); Eosinophils % (auto) 1.6 % (0.0-7.0); Hematocrit 38.8 % (41.0-53.0); Hemoglobin 13.2 g/dL (13.5-17.5); Lymphocytes # (auto) 1.3 10 ^3/uL (0.4-5.4); Mean Corpuscular Volume 85.5 fL (80.0-100.0); Monocytes # (auto) 0.8 10 ^3/uL (0-1.3); Monocytes % (auto) 10.2 % (0.0-12.0); Neutrophils # (auto) 5.5 10 ^3/uL (1.6-8.6); Neutrophils % (auto) 70.1 % (37.0-80.0); Red Blood Cells 4.54 10^6/uL (4.5-5.90); Red Cell Distribution Width 14.4 % (11.8-14.3); White Blood Cell 7.9 10^3/uL (4.4-10.8)
[2022-01-04 08:01] LABS: Albumin 3.2 g/dL (3.4-5.0); Calcium 8.1 mg/dL (8.5-10.1); Potassium 3.9 mmol/L (3.5-5.1)
[2022-01-04 08:03] LABS: BUN/Creatinine Ratio 28.2
[2022-01-04] MEDS: VANCOMYCIN 1GM/250ML 250 ML IV SCH ×2 (08:23→18:26)
[2022-01-04] MEDS: DAKINS QUARTER STR 0.125% (NaHypochlorite) 473 ML TOPICAL SOL TOP SCH ×2 (10:00→22:00)
[2022-01-04] MEDS: CITALOPRAM HYDROBR 20 MG TAB PO SCH (11:12)
[2022-01-04] MEDS: ENOXAPARIN SOD 40 MG/0.4 ML SYRINGE SC SCH (11:12)
[2022-01-04] MEDS: CEFTRIAXONE SODIUM 2 GM in D5W 5% 50 ML IV SCH (11:13)
[2022-01-04] MEDS: SODIUM CHLOR 0.9% PF (SALINE LOCK) 10ML VIAL/SYR IV SCH ×2 (11:14→22:20)
[2022-01-04 13:00] VITALS: BP 118/61
[2022-01-04 16:30] VITALS: BP 123/69
[2022-01-04 22:00] VITALS: BP 122/71
[2022-01-05] MEDS: VANCOMYCIN 1GM/250ML 250 ML IV SCH ×3 (03:35→23:31)
[2022-01-05] MEDS: HYDROmorphone HCL 2 MG/ML VL/or syr IV PRN ×7 (03:36→23:32)
[2022-01-05 05:00] VITALS: BP 140/69
[2022-01-05] MEDS: ACCU-CHEK COMFORT CURVE STRIP VI SCH ×4 (06:41→21:16)
[2022-01-05] MEDS: metroNIDAZOLE 500 MG TAB PO SCH ×3 (06:41→21:16)
[2022-01-05] MEDS: InsuLIN REG 1unit/0.01ml Soln (100units/ml) SC SCH ×4 (06:41→21:13)
[2022-01-05] MEDS: INSULIN LANTUS (GLARGINE) 1 /0.01ml (100units/ml) SC SCH ×2 (06:42→21:13)
[2022-01-05 08:53] VITALS: BP 119/58
[2022-01-05] MEDS: ENOXAPARIN SOD 40 MG/0.4 ML SYRINGE SC SCH (09:05)
[2022-01-05] MEDS: CEFTRIAXONE SODIUM 2 GM in D5W 5% 50 ML IV SCH (09:05)
[2022-01-05] MEDS: CITALOPRAM HYDROBR 20 MG TAB PO SCH (09:05)
[2022-01-05] MEDS: SODIUM CHLOR 0.9% PF (SALINE LOCK) 10ML VIAL/SYR IV SCH ×2 (09:05→22:34)
[2022-01-05 12:16] VITALS: BP 126/70
[2022-01-05] MEDS: DAKINS QUARTER STR 0.125% (NaHypochlorite) 473 ML TOPICAL SOL TOP SCH ×2 (12:39→22:34)
[2022-01-05] MEDS ORDERED: HYDR-4902 PO (12:39)
[2022-01-05] MEDS ORDERED: NALO4SPR2 (12:42)
[2022-01-05 16:57] VITALS: BP 111/57
[2022-01-05 22:00] VITALS: BP 123/64
[2022-01-06] MEDS: HYDROmorphone HCL 2 MG/ML VL/or syr IV PRN ×3 (03:14→15:35)
[2022-01-06 05:00] VITALS: BP 116/55
[2022-01-06] MEDS: metroNIDAZOLE 500 MG TAB PO SCH ×3 (05:56→21:04)
[2022-01-06] MEDS: ACCU-CHEK COMFORT CURVE STRIP VI SCH ×4 (06:13→20:45)
[2022-01-06] MEDS: InsuLIN REG 1unit/0.01ml Soln (100units/ml) SC SCH ×4 (06:13→21:24)
[2022-01-06] MEDS: INSULIN LANTUS (GLARGINE) 1 /0.01ml (100units/ml) SC SCH ×2 (06:13→21:24)
[2022-01-06] MEDS: DAKINS QUARTER STR 0.125% (NaHypochlorite) 473 ML TOPICAL SOL TOP SCH ×2 (08:45→21:04)
[2022-01-06 09:00] VITALS: BP 113/58
[2022-01-06] MEDS: CITALOPRAM HYDROBR 20 MG TAB PO SCH (09:45)
[2022-01-06] MEDS: CEFTRIAXONE SODIUM 2 GM in D5W 5% 50 ML IV SCH (09:45)
[2022-01-06] MEDS: ENOXAPARIN SOD 40 MG/0.4 ML SYRINGE SC SCH (09:45)
[2022-01-06] MEDS: SODIUM CHLOR 0.9% PF (SALINE LOCK) 10ML VIAL/SYR IV SCH ×2 (09:46→22:00)
[2022-01-06] MEDS: VANCOMYCIN 1GM/250ML 250 ML IV SCH (09:46)
[2022-01-06 13:00] VITALS: BP 105/43
[2022-01-06 17:00] VITALS: BP 107/50
[2022-01-06] MEDS: HYDROcodone-ACET 5/325MG TAB PO PRN (21:04)
[2022-01-06 22:00] VITALS: BP 119/57
[2022-01-07 05:00] VITALS: BP 128/48
[2022-01-07] MEDS: metroNIDAZOLE 500 MG TAB PO SCH ×3 (05:49→21:34)
[2022-01-07] MEDS: InsuLIN REG 1unit/0.01ml Soln (100units/ml) SC SCH ×4 (06:24→22:33)
[2022-01-07] MEDS: ACCU-CHEK COMFORT CURVE STRIP VI SCH ×4 (06:25→21:34)
[2022-01-07] MEDS: INSULIN LANTUS (GLARGINE) 1 /0.01ml (100units/ml) SC SCH ×2 (06:25→22:33)
[2022-01-07] MEDS: HYDROcodone-ACET 5/325MG TAB PO PRN ×3 (06:30→19:08)
[2022-01-07 08:00] VITALS: BP 100/61
[2022-01-07] MEDS: CITALOPRAM HYDROBR 20 MG TAB PO SCH (08:57)
[2022-01-07] MEDS: ENOXAPARIN SOD 40 MG/0.4 ML SYRINGE SC SCH (08:58)
[2022-01-07] MEDS: CEFTRIAXONE SODIUM 2 GM in D5W 5% 50 ML IV SCH (08:58)
[2022-01-07] MEDS: SODIUM CHLOR 0.9% PF (SALINE LOCK) 10ML VIAL/SYR IV SCH ×2 (08:58→21:33)
[2022-01-07] MEDS: DAKINS QUARTER STR 0.125% (NaHypochlorite) 473 ML TOPICAL SOL TOP SCH ×2 (08:59→22:31)
[2022-01-07 12:00] VITALS: BP 130/67
[2022-01-07 16:00] VITALS: BP 109/61
[2022-01-07 22:00] VITALS: BP 98/56
[2022-01-08 05:00] VITALS: BP 117/31
[2022-01-08] MEDS: metroNIDAZOLE 500 MG TAB PO SCH ×3 (06:27→23:42)
[2022-01-08] MEDS: InsuLIN REG 1unit/0.01ml Soln (100units/ml) SC SCH ×4 (07:00→21:31)
[2022-01-08] MEDS: ACCU-CHEK COMFORT CURVE STRIP VI SCH ×4 (07:16→21:26)
[2022-01-08] MEDS: INSULIN LANTUS (GLARGINE) 1 /0.01ml (100units/ml) SC SCH ×2 (08:00→21:28)
[2022-01-08 09:00] VITALS: BP 102/53
[2022-01-08] MEDS: SODIUM CHLOR 0.9% PF (SALINE LOCK) 10ML VIAL/SYR IV SCH ×2 (10:00→21:25)
[2022-01-08] MEDS: CEFTRIAXONE SODIUM 2 GM in D5W 5% 50 ML IV SCH (11:00)
[2022-01-08] MEDS: HYDROcodone-ACET 5/325MG TAB PO PRN ×3 (11:45→20:41)
[2022-01-08] MEDS: CITALOPRAM HYDROBR 20 MG TAB PO SCH (12:36)
[2022-01-08] MEDS: DAKINS QUARTER STR 0.125% (NaHypochlorite) 473 ML TOPICAL SOL TOP SCH ×2 (12:37→21:26)
[2022-01-08] MEDS: ENOXAPARIN SOD 40 MG/0.4 ML SYRINGE SC SCH (12:37)
[2022-01-08 13:00] VITALS: BP 107/66
[2022-01-08 17:00] VITALS: BP 107/67
[2022-01-08 22:00] VITALS: BP 113/54
[2022-01-09 05:00] VITALS: BP 127/67
[2022-01-09] MEDS: metroNIDAZOLE 500 MG TAB PO SCH ×2 (05:16→14:45)
[2022-01-09] MEDS: InsuLIN REG 1unit/0.01ml Soln (100units/ml) SC SCH ×3 (05:17→18:00)
[2022-01-09] MEDS: INSULIN LANTUS (GLARGINE) 1 /0.01ml (100units/ml) SC SCH (05:17)
[2022-01-09] MEDS: ACCU-CHEK COMFORT CURVE STRIP VI SCH ×3 (05:17→18:00)
[2022-01-09 08:51] VITALS: BP_SYST 106; BP_SYST 163; BP_DIAS 58; BP_DIAS 59
[2022-01-09] MEDS: CITALOPRAM HYDROBR 20 MG TAB PO SCH (10:04)
[2022-01-09] MEDS: ENOXAPARIN SOD 40 MG/0.4 ML SYRINGE SC SCH (10:05)
[2022-01-09] MEDS: CEFTRIAXONE SODIUM 2 GM in D5W 5% 50 ML IV SCH (10:06)
[2022-01-09] MEDS: SODIUM CHLOR 0.9% PF (SALINE LOCK) 10ML VIAL/SYR IV SCH (10:07)
[2022-01-09 12:20] VITALS: BP 109/48
[2022-01-09 17:04] VITALS: BP 130/69
[2022-01-09] MEDS: DAKINS QUARTER STR 0.125% (NaHypochlorite) 473 ML TOPICAL SOL TOP SCH (18:00)
== END 2022-01-09 18:40 | disposition home or self-care (01) | DRG 623 ==
LOC: ER 23:52 → OVERFLOW 12-27 07:04 → EAST 12-27 20:57
PROVIDERS: ADMIT Nurse Practitioner Family; ATTEND Internal Medicine
PROC: 0JBQ0ZZ Excision of Right Foot Subcutaneous Tissue and Fascia, Open Approach (ICD-10-PCS; principal; 2022-01-02 07:38)
PROC: 05HY33Z Insertion of Infusion Device into Upper Vein, Percutaneous Approach (ICD-10-PCS; 2022-01-03)
PROC: B54MZZA Ultrasonography of Right Upper Extremity Veins, Guidance (ICD-10-PCS; 2022-01-03)
DX: E11.621 Type 2 diabetes mellitus with foot ulcer (principal); E87.20 Acidosis, unspecified; L03.115 Cellulitis of right lower limb; L02.611 Cutaneous abscess of right foot; M86.8X7 Other osteomyelitis, ankle and foot; I10 Essential (primary) hypertension; E11.628 Type 2 diabetes mellitus with other skin complications; L97.519 Non-pressure chronic ulcer of other part of right foot with unspecified severity; F51.04 Psychophysiologic insomnia; E11.65 Type 2 diabetes mellitus with hyperglycemia; E11.69 Type 2 diabetes mellitus with other specified complication; E66.01 Morbid (severe) obesity due to excess calories; Z20.822 Contact with and (suspected) exposure to COVID-19; J44.9 Chronic obstructive pulmonary disease, unspecified; Z79.4 Long term (current) use of insulin; Z87.891 Personal history of nicotine dependence; Z80.1 Family history of malignant neoplasm of trachea, bronchus and lung; Z68.31 Body mass index [BMI] 31.0-31.9, adult
CPT/HCPCS: 36415; 36569; 71045; 73700; 73718; 80048; 80053; 80069; 80202; 81001; 82962; 83036; 83605; 83735; 85025; 85610; 85730; 86141; 86850; 86900; 86901; 87040; 87075; 87205; 87426; 93005; 93971; 96365; 96375; G0378; J0696; J1100; J1815; J2001; J2250; J2405; J2704; J3490; J7060; P9047

== ENCOUNTER 2022-01-21 08:09 | Emergency (ER) | payer OTHER ==
[~2022-01-21] VITALS: Ht 180.3 cm; Wt 104.0 kg
[~2022-01-21 08:09] MED LIST changes: +HYDR-4902 PO; +NALO4SPR2
[2022-01-21 12:46] LABS: Basophils # (auto) 0.1 10 ^3/uL (0-0.2); Basophils % (auto) 0.9 % (0.0-2.0); Eosinophils # (auto) 0.3 10 ^3/uL (0-0.8); Eosinophils % (auto) 3.2 % (0.0-7.0); Hematocrit 45.6 % (41.0-53.0); Hemoglobin 15.1 g/dL (13.5-17.5); Lymphocytes # (auto) 1.9 10 ^3/uL (0.4-5.4); Lymphocytes % (auto) 19.8 % (10.0-50.0); Mean Corpuscular Hemoglobin 29.3 pg (28.0-32.0); Mean Corpuscular Volume 88.7 fL (80.0-100.0); Monocytes # (auto) 0.8 10 ^3/uL (0-1.3); Monocytes % (auto) 7.8 % (0.0-12.0); Neutrophils # (auto) 6.6 10 ^3/uL (1.6-8.6); Neutrophils % (auto) 68.3 % (37.0-80.0); Nucleated Red Blood Cells % 0.1 %; Red Blood Cells 5.15 10^6/uL (4.5-5.90); Red Cell Distribution Width 14.6 % (11.8-14.3); White Blood Cell 9.7 10^3/uL (4.4-10.8)
[2022-01-21 13:16] LABS: INR 1.02 (0.9-1.15); Partial Thromboplastin Time 25.8 sec (24.6-33.4)
[2022-01-21 14:21] VITALS: BP 140/70
== END 2022-01-21 14:24 | disposition home or self-care (01) ==
LOC: ER 08:09
DX: T82.898A Other specified complication of vascular prosthetic devices, implants and grafts, initial encounter (principal); L03.115 Cellulitis of right lower limb; M86.9 Osteomyelitis, unspecified; E11.9 Type 2 diabetes mellitus without complications; I10 Essential (primary) hypertension; J44.9 Chronic obstructive pulmonary disease, unspecified; F17.210 Nicotine dependence, cigarettes, uncomplicated; Z79.4 Long term (current) use of insulin; Z79.899 Other long term (current) drug therapy
CPT/HCPCS: 36415; 71046; 85025; 85610; 85730

== ENCOUNTER 2022-11-03 15:51 | Inpatient (IN) | payer OTHER ==
[~2022-11-03] VITALS: Ht 180.3 cm; Wt 112.3 kg
[~2022-11-03 15:51] MED LIST changes: +TRAZ-228 PO; -TRAZ100T3 PO
[2022-11-03] MEDS ORDERED: ALBUTEROL SULF 2.5 MG/0.5ML(0.5%) NEB SOLN NEB ONE (16:30)
[2022-11-03] MEDS ORDERED: IPRATROPIUM BROM 0.5 MG/2.5ML INH SOL NEB ONE (16:30)
[2022-11-03 16:53] LABS: Basophils # (auto) 0 10 ^3/uL (0-0.2); Basophils % (auto) 0.2 % (0.0-2.0); Eosinophils # (auto) 0 10 ^3/uL (0-0.8); Eosinophils % (auto) 0.1 % (0.0-7.0); Hematocrit 45.5 % (41.0-53.0); Lymphocytes # (auto) 0.8 10 ^3/uL (0.4-5.4); Lymphocytes % (auto) 8.1 % (10.0-50.0); Mean Corpuscular Volume 87.8 fL (80.0-100.0); Monocytes # (auto) 0.8 10 ^3/uL (0-1.3); Monocytes % (auto) 7.9 % (0.0-12.0); Neutrophils # (auto) 8.3 10 ^3/uL (1.6-8.6); Neutrophils % (auto) 83.7 % (37.0-80.0); Red Blood Cells 5.18 10^6/uL (4.5-5.90); Red Cell Distribution Width 14.7 % (11.8-14.3)
[2022-11-03 17:10] LABS: Alanine Aminotransferase 21 U/L (7-40); Albumin 4.2 g/dL (3.2-4.8); Alkaline Phosphatase 93 U/L (46-116); Anion Gap 8.7 (5-15); Aspartate Aminotransferase 27 U/L (13-40); BUN/Creatinine Ratio 21.7 (10.0-20.0); Bilirubin, Total 0.7 mg/dL (0.2-1.0); Blood Urea Nitrogen 23 mg/dL (9-23); Calcium 8.3 mg/dL (8.5-10.1); Carbon Dioxide 23.3 mmol/L (20-30); Chloride 104 mmol/L (98-107); Glucose 172 mg/dL (74-106); Potassium 4.2 mmol/L (3.5-5.1); Sodium 136 mmol/L (136-145); Total Protein 6.3 g/dL (5.7-8.2)
[2022-11-03] MEDS ORDERED: AZITHROMYCIN 500MG/ 250ML 250 ML IV ONE (17:45)
[2022-11-03] MEDS ORDERED: cefTRIAXone 1GM/50ML D5W 50 ML IV ONE (17:45)
[2022-11-03] MEDS ORDERED: MORPHINE SULFATE INJ 2 MG/ml SYRG IV PRN (22:00)
[2022-11-03] MEDS ORDERED: NITROGLYCERIN 0.4 MG SL TAB SL PRN (22:00)
[2022-11-03] MEDS ORDERED: methylPREDNISolone SOD SUCC 40 MG/ML VL IV ONE (22:00)
[2022-11-03 22:09] VITALS: BP 115/75; PULSE 95; RESP 24; TEMP 99; O2SAT 94
[2022-11-03] MEDS ORDERED: DEXTROSE (50%) 50ML SYRG IV PRN (22:15)
[2022-11-03] MEDS: traZODone HCL 50 MG TAB PO SCH (22:43)
[2022-11-03 23:37] LABS: COVID19 ANTIGEN SOFIA FIA POSITIVE (NEGATIVE)
[2022-11-03 23:38] LABS: Rapid Influenza A Negative (Negative); Rapid Influenza B Negative (Negative)
[2022-11-04] MEDS: HYDROcodone-ACET 10/325MG TAB PO PRN ×2 (00:06→22:20)
[2022-11-04 00:29] VITALS: O2SAT 94
[2022-11-04] MEDS: ACETAMINOPHEN 325 MG TAB PO PRN (02:00)
[2022-11-04 05:56] LABS: Basophils # (auto) 0 10 ^3/uL (0-0.2); Basophils % (auto) 0.1 % (0.0-2.0); Eosinophils # (auto) 0 10 ^3/uL (0-0.8); Hematocrit 43.4 % (41.0-53.0); Hemoglobin 14.2 g/dL (13.5-17.5); Lymphocytes # (auto) 0.6 10 ^3/uL (0.4-5.4); Lymphocytes % (auto) 7.1 % (10.0-50.0); Mean Corpuscular Hemoglobin 28.9 pg (28.0-32.0); Mean Corpuscular Hgb Conc. 32.8 g/dL (32.0-36.0); Mean Corpuscular Volume 88.1 fL (80.0-100.0); Monocytes # (auto) 0.4 10 ^3/uL (0-1.3); Monocytes % (auto) 5.1 % (0.0-12.0); Neutrophils # (auto) 7.3 10 ^3/uL (1.6-8.6); Neutrophils % (auto) 87.7 % (37.0-80.0); Red Blood Cells 4.92 10^6/uL (4.5-5.90); Red Cell Distribution Width 14.4 % (11.8-14.3); White Blood Cell 8.4 10^3/uL (4.4-10.8)
[2022-11-04] MEDS ORDERED: ALBUTEROL SULF 2.5 MG/0.5ML(0.5%) NEB SOLN NEB SCH (06:00)
[2022-11-04] MEDS: IPRATROPIUM BROM 0.5 MG/2.5ML INH SOL NEB SCH ×2 (06:00→13:22)
[2022-11-04 06:30] LABS: Alanine Aminotransferase 18 U/L (7-40); Alkaline Phosphatase 82 U/L (46-116); Anion Gap 7.5 (5-15); Aspartate Aminotransferase 23 U/L (13-40); BUN/Creatinine Ratio 18.6 (10.0-20.0); Blood Urea Nitrogen 24 mg/dL (9-23); Carbon Dioxide 22.5 mmol/L (20-30); Chloride 100 mmol/L (98-107)
[2022-11-04 06:31] LABS: Bilirubin, Total 0.5 mg/dL (0.2-1.0); Total Protein 6.4 g/dL (5.7-8.2)
[2022-11-04] MEDS: ACCU-CHEK COMFORT CURVE STRIP VI SCH ×5 (06:36→23:46)
[2022-11-04] MEDS: InsuLIN REG 1unit/0.01ml Soln (100units/ml) SC SCH ×5 (06:36→23:48)
[2022-11-04 07:17] LABS: Sodium 130 mmol/L (136-145)
[2022-11-04] MEDS: ALBUTEROL SULF HFA 90MCG INH 200DOSE IN PRN ×2 (07:17→20:30)
[2022-11-04 07:19] VITALS: PULSE 73; RESP 19; O2SAT 95
[2022-11-04 07:22] LABS: Glucose 417 mg/dL (74-106)
[2022-11-04] MEDS: cefTRIAXone 1GM/50ML D5W 50 ML IV SCH (08:33)
[2022-11-04] MEDS ORDERED: PANTOPRAZOLE 40 MG/10 ML VIAL INJ IV SCH (10:00)
[2022-11-04] MEDS ORDERED: LISINOPRIL 20 MG TAB PO SCH (10:00)
[2022-11-04] MEDS: CITALOPRAM HYDROBR 20 MG TAB PO SCH (10:39)
[2022-11-04] MEDS: HYDROcodone-ACET 5/325MG TAB PO PRN (10:39)
[2022-11-04] MEDS: ASPirin-EC 81 mg tab PO SCH (10:40)
[2022-11-04] MEDS: AZITHROMYCIN 500MG/ 250ML 250 ML IV SCH (10:40)
[2022-11-04] MEDS: methylPREDNISolone SOD SUCC 40 MG/ML VL IV SCH (10:41)
[2022-11-04] MEDS: ENOXAPARIN SOD 40 MG/0.4 ML SYRINGE SC SCH (10:41)
[2022-11-04] MEDS: ATORVASTATIN 20 MG TAB PO SCH (10:41)
[2022-11-04] MEDS: INSULIN 70/30 1unit/0.01ml Susp (100units/ml) SC SCH ×2 (10:42→22:27)
[2022-11-04] MEDS ORDERED: DEXTROSE (50%) 50ML SYRG IV PRN (14:30)
[2022-11-04 18:11] LABS: Urine Bacteria NONE SEEN /hpf (None Seen); Urine Blood 1+ /uL (Negative); Urine Clarity Clear (Clear); Urine Color Colorless (Yellow); Urine Mucus FEW (None Seen); Urine Protein, UAD Negative (Negative); Urine Specific Gravity 1.025 (1.001-1.035); Urine Sperm PRESENT /hpf (None Seen); Urine Urobilinogen Normal (Negative); Urine WBC <1 /hpf (0 - 3)
[2022-11-04 20:00] VITALS: PULSE 74; RESP 27; O2SAT 92
[2022-11-04 20:30] VITALS: PULSE 74; RESP 22; O2SAT 93
[2022-11-04 21:47] VITALS: BP 116/70; PULSE 69; RESP 19; TEMP 98.2; O2SAT 93
[2022-11-04] MEDS: traZODone HCL 50 MG TAB PO SCH (22:20)
[2022-11-05] VITALS (9 sets, daily range): BP systolic 96–118; BP diastolic 48–72; PULSE 62–82; RESP 18–22; TEMP 97.6–98.3; O2SAT 90–95
[2022-11-05] MEDS: InsuLIN REG 1unit/0.01ml Soln (100units/ml) SC SCH ×6 (04:00→23:46)
[2022-11-05] MEDS: ACCU-CHEK COMFORT CURVE STRIP VI SCH ×6 (04:23→23:44)
[2022-11-05] MEDS: ALBUTEROL SULF HFA 90MCG INH 200DOSE IN PRN ×2 (04:25→17:28)
[2022-11-05 05:53] LABS: Calcium 8.2 mg/dL (8.5-10.1); Chloride 105 mmol/L (98-107); Potassium 4.4 mmol/L (3.5-5.1); Sodium 137 mmol/L (136-145)
[2022-11-05 05:54] LABS: Anion Gap 7.4 (5-15); Carbon Dioxide 24.6 mmol/L (20-30)
[2022-11-05 05:59] LABS: Glucose 103 mg/dL (74-106)
[2022-11-05 06:00] LABS: BUN/Creatinine Ratio 25.6 (10.0-20.0); Blood Urea Nitrogen 21 mg/dL (9-23); LDL Cholesterol 44 mg/dL (< 100); Magnesium 1.5 mg/dL (1.6-2.6); Triglycerides 69 mg/dL (< 150)
[2022-11-05 06:02] LABS: Cholesterol 112 mg/dL (< 200); HDL Cholesterol 50 mg/dL (40-59)
[2022-11-05] MEDS: cefTRIAXone 1GM/50ML D5W 50 ML IV SCH (08:08)
[2022-11-05] MEDS: methylPREDNISolone SOD SUCC 40 MG/ML VL IV SCH (08:33)
[2022-11-05] MEDS: ASPirin-EC 81 mg tab PO SCH (08:33)
[2022-11-05] MEDS: ENOXAPARIN SOD 40 MG/0.4 ML SYRINGE SC SCH (08:33)
[2022-11-05] MEDS: CHOLECALCIFEROL (VITD3) 2,000 UNIT CAP/TAB PO SCH (08:33)
[2022-11-05] MEDS: ASCORBIC ACID 1,000 MG TAB PO SCH (08:34)
[2022-11-05] MEDS: CITALOPRAM HYDROBR 20 MG TAB PO SCH (08:34)
[2022-11-05] MEDS: AZITHROMYCIN 500MG/ 250ML 250 ML IV SCH (08:34)
[2022-11-05] MEDS: ZINC SULFATE 220mg CAP or TAB PO SCH (08:34)
[2022-11-05] MEDS: ATORVASTATIN 20 MG TAB PO SCH (08:34)
[2022-11-05] MEDS: INSULIN 70/30 1unit/0.01ml Susp (100units/ml) SC SCH ×2 (10:18→21:42)
[2022-11-05] MEDS: HYDROcodone-ACET 5/325MG TAB PO PRN (10:22)
[2022-11-05] MEDS ORDERED: REMDESIVIR PER PHARMACY 0 ML IV SCH (11:15)
[2022-11-05 11:36] LABS: Urine Bacteria FEW /hpf (None Seen); Urine Blood 1+ /uL (Negative); Urine Clarity Clear (Clear); Urine Protein, UAD TRACE (Negative); Urine Specific Gravity 1.016 (1.001-1.035); Urine Urobilinogen Normal (Negative); Urine WBC 6 /hpf (0 - 3); Urine pH 5.5 (5.0-8.0)
[2022-11-05 11:41] LABS: Urine Color Yellow (Yellow)
[2022-11-05] MEDS ORDERED: IOHEXOL 350 MG/ML 100ML IJ ONE (13:03)
[2022-11-05] MEDS ORDERED: REMDESIVIR 200 MG in NS 210ml LOADING DOSE ADULT IV ONE (14:00)
[2022-11-05] MEDS: HYDROcodone-ACET 10/325MG TAB PO PRN ×2 (17:14→21:41)
[2022-11-05] MEDS: traZODone HCL 50 MG TAB PO SCH (21:41)
[2022-11-06] VITALS (11 sets, daily range): BP systolic 91–130; BP diastolic 53–89; PULSE 51–91; RESP 18–20; TEMP 97.6–98.2; O2SAT 91–96
[2022-11-06] MEDS: InsuLIN REG 1unit/0.01ml Soln (100units/ml) SC SCH ×5 (04:00→20:06)
[2022-11-06] MEDS: ACCU-CHEK COMFORT CURVE STRIP VI SCH ×5 (04:16→20:05)
[2022-11-06] MEDS: HYDROcodone-ACET 10/325MG TAB PO PRN ×2 (06:19→16:40)
[2022-11-06 06:47] LABS: Alanine Aminotransferase 19 U/L (7-40); Albumin 3.7 g/dL (3.2-4.8); Alkaline Phosphatase 75 U/L (46-116); Anion Gap 7.1 (5-15); Aspartate Aminotransferase 21 U/L (13-40); BUN/Creatinine Ratio 22.7 (10.0-20.0); Bilirubin, Total 0.3 mg/dL (0.2-1.0); Blood Urea Nitrogen 17 mg/dL (9-23); Calcium 8.3 mg/dL (8.5-10.1); Carbon Dioxide 25.9 mmol/L (20-30); Chloride 105 mmol/L (98-107); Glucose 55 mg/dL (74-106); Sodium 138 mmol/L (136-145)
[2022-11-06] MEDS: cefTRIAXone 1GM/50ML D5W 50 ML IV SCH (08:29)
[2022-11-06] MEDS: methylPREDNISolone SOD SUCC 40 MG/ML VL IV SCH (09:22)
[2022-11-06] MEDS: CITALOPRAM HYDROBR 20 MG TAB PO SCH (09:22)
[2022-11-06] MEDS: ASPirin-EC 81 mg tab PO SCH (09:22)
[2022-11-06] MEDS: ASCORBIC ACID 1,000 MG TAB PO SCH (09:22)
[2022-11-06] MEDS: ATORVASTATIN 20 MG TAB PO SCH (09:22)
[2022-11-06] MEDS: AZITHROMYCIN 500MG/ 250ML 250 ML IV SCH (09:22)
[2022-11-06] MEDS: ZINC SULFATE 220mg CAP or TAB PO SCH (09:22)
[2022-11-06] MEDS: INSULIN 70/30 1unit/0.01ml Susp (100units/ml) SC SCH ×2 (09:23→21:56)
[2022-11-06] MEDS: CHOLECALCIFEROL (VITD3) 2,000 UNIT CAP/TAB PO SCH (09:23)
[2022-11-06] MEDS: ENOXAPARIN SOD 40 MG/0.4 ML SYRINGE SC SCH (09:23)
[2022-11-06] MEDS: guaiFENesin-DM 100/10mg/5ml SYR PO PRN ×4 (11:33→20:09)
[2022-11-06] MEDS: ONDANSETRON HCL 4 MG/2 ML VIAL IV PRN (15:23)
[2022-11-06] MEDS: REMDESIVIR 100mg 100 MG in SODIUM CHL 0.9% 230 ML IV SCH (16:40)
[2022-11-06] MEDS: ALBUTEROL SULF HFA 90MCG INH 200DOSE IN PRN (16:55)
[2022-11-06] MEDS: HYDROcodone-ACET 5/325MG TAB PO PRN (20:09)
[2022-11-06] MEDS: traZODone HCL 50 MG TAB PO SCH (21:56)
[2022-11-07] VITALS (11 sets, daily range): BP systolic 101–137; BP diastolic 41–82; PULSE 62–85; RESP 17–20; TEMP 97.7–98.5; O2SAT 92–98
[2022-11-07] MEDS: ACCU-CHEK COMFORT CURVE STRIP VI SCH ×6 (00:12→20:00)
[2022-11-07] MEDS: InsuLIN REG 1unit/0.01ml Soln (100units/ml) SC SCH ×6 (00:14→21:00)
[2022-11-07] MEDS: HYDROcodone-ACET 10/325MG TAB PO PRN ×2 (00:18→09:41)
[2022-11-07 06:15] LABS: Alanine Aminotransferase 19 U/L (7-40); Alkaline Phosphatase 72 U/L (46-116); Anion Gap 6.9 (5-15); Calcium 8.8 mg/dL (8.7-10.4); Carbon Dioxide 27.1 mmol/L (20-30); Chloride 104 mmol/L (98-107); Glucose 90 mg/dL (74-106); Sodium 138 mmol/L (136-145)
[2022-11-07 06:16] LABS: BUN/Creatinine Ratio 23.5 (10.0-20.0); Blood Urea Nitrogen 19 mg/dL (9-23)
[2022-11-07 06:17] LABS: Albumin 3.9 g/dL (3.2-4.8); Aspartate Aminotransferase 21 U/L (13-40)
[2022-11-07 06:18] LABS: Bilirubin, Total 0.4 mg/dL (0.2-1.0); Total Protein 6.3 g/dL (5.7-8.2)
[2022-11-07] MEDS: ALBUTEROL SULF HFA 90MCG INH 200DOSE IN PRN ×2 (07:03→19:02)
[2022-11-07] MEDS: cefTRIAXone 1GM/50ML D5W 50 ML IV SCH (08:31)
[2022-11-07] MEDS: INSULIN 70/30 1unit/0.01ml Susp (100units/ml) SC SCH ×2 (09:19→22:38)
[2022-11-07] MEDS: guaiFENesin-DM 100/10mg/5ml SYR PO PRN ×2 (09:40→16:22)
[2022-11-07] MEDS: methylPREDNISolone SOD SUCC 40 MG/ML VL IV SCH (09:40)
[2022-11-07] MEDS: AZITHROMYCIN 500MG/ 250ML 250 ML IV SCH (09:40)
[2022-11-07] MEDS: ONDANSETRON HCL 4 MG/2 ML VIAL IV PRN (09:40)
[2022-11-07] MEDS: ENOXAPARIN SOD 40 MG/0.4 ML SYRINGE SC SCH (09:41)
[2022-11-07] MEDS: CITALOPRAM HYDROBR 20 MG TAB PO SCH (09:41)
[2022-11-07] MEDS: ASPirin-EC 81 mg tab PO SCH (09:41)
[2022-11-07] MEDS: CHOLECALCIFEROL (VITD3) 2,000 UNIT CAP/TAB PO SCH (09:41)
[2022-11-07] MEDS: ASCORBIC ACID 1,000 MG TAB PO SCH (09:41)
[2022-11-07] MEDS: ZINC SULFATE 220mg CAP or TAB PO SCH (09:41)
[2022-11-07] MEDS: ATORVASTATIN 20 MG TAB PO SCH (09:41)
[2022-11-07] MEDS: HYDROcodone-ACET 5/325MG TAB PO PRN ×2 (16:22→22:38)
[2022-11-07] MEDS: REMDESIVIR 100mg 100 MG in SODIUM CHL 0.9% 230 ML IV SCH (17:01)
[2022-11-07] MEDS: guaiFENesin-CODEINE Liq 5 ML UD PO PRN (22:06)
[2022-11-08] VITALS (11 sets, daily range): BP systolic 107–117; BP diastolic 54–77; PULSE 60–97; RESP 16–18; TEMP 97.5–98; O2SAT 91–97
[2022-11-08] MEDS: traZODone HCL 50 MG TAB PO SCH ×2 (01:00→21:36)
[2022-11-08] MEDS: ACCU-CHEK COMFORT CURVE STRIP VI SCH ×6 (01:00→21:34)
[2022-11-08] MEDS: InsuLIN REG 1unit/0.01ml Soln (100units/ml) SC SCH ×6 (01:04→21:35)
[2022-11-08] MEDS: guaiFENesin-CODEINE Liq 5 ML UD PO PRN ×4 (05:58→22:54)
[2022-11-08 08:14] LABS: Alanine Aminotransferase 32 U/L (7-40); Alkaline Phosphatase 76 U/L (46-116); Anion Gap 7.1 (5-15); Aspartate Aminotransferase 32 U/L (13-40); BUN/Creatinine Ratio 19.8 (10.0-20.0); Bilirubin, Total 0.4 mg/dL (0.2-1.0); Blood Urea Nitrogen 16 mg/dL (9-23); Calcium 9.1 mg/dL (8.5-10.1); Carbon Dioxide 29.9 mmol/L (20-30); Chloride 102 mmol/L (98-107); Potassium 3.7 mmol/L (3.5-5.1); Sodium 139 mmol/L (136-145); Total Protein 6.6 g/dL (5.7-8.2)
[2022-11-08 08:17] LABS: Glucose 36 mg/dL (74-106)
[2022-11-08] MEDS: cefTRIAXone 1GM/50ML D5W 50 ML IV SCH (08:22)
[2022-11-08] MEDS: ATORVASTATIN 20 MG TAB PO SCH (09:45)
[2022-11-08] MEDS: ASPirin-EC 81 mg tab PO SCH (09:45)
[2022-11-08] MEDS: CITALOPRAM HYDROBR 20 MG TAB PO SCH (09:45)
[2022-11-08] MEDS: CHOLECALCIFEROL (VITD3) 2,000 UNIT CAP/TAB PO SCH (09:45)
[2022-11-08] MEDS: ZINC SULFATE 220mg CAP or TAB PO SCH (09:45)
[2022-11-08] MEDS: ENOXAPARIN SOD 40 MG/0.4 ML SYRINGE SC SCH (09:46)
[2022-11-08] MEDS: methylPREDNISolone SOD SUCC 40 MG/ML VL IV SCH (09:46)
[2022-11-08] MEDS: ASCORBIC ACID 1,000 MG TAB PO SCH (09:46)
[2022-11-08] MEDS: AZITHROMYCIN 500MG/ 250ML 250 ML IV SCH (09:47)
[2022-11-08] MEDS: HYDROcodone-ACET 5/325MG TAB PO PRN (12:30)
[2022-11-08] MEDS: REMDESIVIR 100mg 100 MG in SODIUM CHL 0.9% 230 ML IV SCH (15:06)
[2022-11-08] MEDS: ACETAMINOPHEN 325 MG TAB PO PRN (15:39)
[2022-11-08] MEDS: ALBUTEROL SULF HFA 90MCG INH 200DOSE IN PRN (16:04)
[2022-11-09] VITALS (12 sets, daily range): BP systolic 91–126; BP diastolic 46–71; PULSE 64–83; RESP 16–22; TEMP 97.4–98.2; O2SAT 92–96
[2022-11-09] MEDS: ACCU-CHEK COMFORT CURVE STRIP VI SCH ×7 (00:47→23:39)
[2022-11-09] MEDS: InsuLIN REG 1unit/0.01ml Soln (100units/ml) SC SCH ×6 (00:47→23:46)
[2022-11-09 07:37] LABS: Alanine Aminotransferase 30 U/L (7-40); Albumin 3.7 g/dL (3.2-4.8); Alkaline Phosphatase 70 U/L (46-116); Aspartate Aminotransferase 30 U/L (13-40); BUN/Creatinine Ratio 22.1 (10.0-20.0); Blood Urea Nitrogen 15 mg/dL (9-23); Calcium 8.8 mg/dL (8.7-10.4); Chloride 101 mmol/L (98-107); Glucose 53 mg/dL (74-106); Magnesium 1.6 mg/dL (1.6-2.6); Potassium 3.8 mmol/L (3.5-5.1); Sodium 137 mmol/L (136-145)
[2022-11-09 07:38] LABS: Bilirubin, Total 0.5 mg/dL (0.2-1.0); Total Protein 6.2 g/dL (5.7-8.2)
[2022-11-09] MEDS: ZINC SULFATE 220mg CAP or TAB PO SCH (08:19)
[2022-11-09] MEDS: CITALOPRAM HYDROBR 20 MG TAB PO SCH (08:20)
[2022-11-09] MEDS: CHOLECALCIFEROL (VITD3) 2,000 UNIT CAP/TAB PO SCH (08:20)
[2022-11-09] MEDS: ASPirin-EC 81 mg tab PO SCH (08:20)
[2022-11-09] MEDS: ATORVASTATIN 20 MG TAB PO SCH (08:20)
[2022-11-09] MEDS: ASCORBIC ACID 1,000 MG TAB PO SCH (08:20)
[2022-11-09] MEDS: HYDROcodone-ACET 5/325MG TAB PO PRN ×2 (08:42→16:39)
[2022-11-09] MEDS: guaiFENesin-CODEINE Liq 5 ML UD PO PRN ×2 (08:42→15:03)
[2022-11-09] MEDS: cefTRIAXone 1GM/50ML D5W 50 ML IV SCH (08:44)
[2022-11-09] MEDS: methylPREDNISolone SOD SUCC 40 MG/ML VL IV SCH (08:44)
[2022-11-09] MEDS: AZITHROMYCIN 500MG/ 250ML 250 ML IV SCH (10:28)
[2022-11-09] MEDS: ENOXAPARIN SOD 40 MG/0.4 ML SYRINGE SC SCH (10:29)
[2022-11-09 11:20] LABS: Base Excess 2.2 mmol/L (-2.0-2.0)
[2022-11-09] MEDS: ALBUTEROL SULF HFA 90MCG INH 200DOSE IN PRN ×2 (14:11→21:27)
[2022-11-09] MEDS: REMDESIVIR 100mg 100 MG in SODIUM CHL 0.9% 230 ML IV SCH (14:55)
[2022-11-09] MEDS ORDERED: diphenhdrAMINE HCL 50 MG/1 ML VL IV ONE (18:15)
[2022-11-09] MEDS ORDERED: diphenhdrAMINE HCL 25 MG CAP PO PRN (18:15)
[2022-11-09] MEDS: traZODone HCL 50 MG TAB PO SCH (23:39)
[2022-11-10] VITALS (12 sets, daily range): BP systolic 90–147; BP diastolic 50–71; PULSE 56–85; RESP 18–22; TEMP 36.1; O2SAT 92–96
[2022-11-10] MEDS: InsuLIN REG 1unit/0.01ml Soln (100units/ml) SC SCH ×6 (00:01→22:18)
[2022-11-10] MEDS: HYDROcodone-ACET 5/325MG TAB PO PRN (00:03)
[2022-11-10] MEDS: ACCU-CHEK COMFORT CURVE STRIP VI SCH ×5 (06:26→20:30)
[2022-11-10] MEDS: cefTRIAXone 1GM/50ML D5W 50 ML IV SCH (08:58)
[2022-11-10] MEDS: ATORVASTATIN 20 MG TAB PO SCH (09:16)
[2022-11-10] MEDS: ZINC SULFATE 220mg CAP or TAB PO SCH (09:16)
[2022-11-10] MEDS: CHOLECALCIFEROL (VITD3) 2,000 UNIT CAP/TAB PO SCH (09:16)
[2022-11-10] MEDS: ASCORBIC ACID 1,000 MG TAB PO SCH (09:16)
[2022-11-10] MEDS: CITALOPRAM HYDROBR 20 MG TAB PO SCH (09:16)
[2022-11-10] MEDS: methylPREDNISolone SOD SUCC 40 MG/ML VL IV SCH (09:17)
[2022-11-10] MEDS: ASPirin-EC 81 mg tab PO SCH (09:17)
[2022-11-10] MEDS: ENOXAPARIN SOD 40 MG/0.4 ML SYRINGE SC SCH (09:17)
[2022-11-10] MEDS ORDERED: AZITHROMYCIN 250 MG TAB PO SCH (10:00)
[2022-11-10] MEDS: ALBUTEROL SULF HFA 90MCG INH 200DOSE IN PRN ×2 (10:31→19:49)
[2022-11-10] MEDS: PANTOPRAZOLE 40 MG/10 ML VIAL INJ IV SCH (11:46)
[2022-11-10] MEDS: guaiFENesin-CODEINE Liq 5 ML UD PO PRN ×2 (15:16→21:07)
[2022-11-10] MEDS: HYDROcodone-ACET 10/325MG TAB PO PRN (16:23)
[2022-11-11] VITALS (7 sets, daily range): BP systolic 90–115; BP diastolic 48–71; PULSE 62–79; RESP 18–24; TEMP 36.1–36.6; O2SAT 90–94
[2022-11-11] MEDS: ACCU-CHEK COMFORT CURVE STRIP VI SCH ×5 (00:44→17:08)
[2022-11-11] MEDS: traZODone HCL 50 MG TAB PO SCH (00:45)
[2022-11-11] MEDS: InsuLIN REG 1unit/0.01ml Soln (100units/ml) SC SCH ×5 (00:53→17:21)
[2022-11-11 09:59] LABS: Basophils # (auto) 0.1 10 ^3/uL (0-0.2); Basophils % (auto) 0.6 % (0.0-2.0); Eosinophils # (auto) 0.4 10 ^3/uL (0-0.8); Eosinophils % (auto) 2.8 % (0.0-7.0); Hematocrit 44.3 % (41.0-53.0); Hemoglobin 14.3 g/dL (13.5-17.5); Lymphocytes # (auto) 2.1 10 ^3/uL (0.4-5.4); Lymphocytes % (auto) 16.1 % (10.0-50.0); Mean Corpuscular Hgb Conc. 32.2 g/dL (32.0-36.0); Monocytes % (auto) 7.9 % (0.0-12.0); Neutrophils # (auto) 9.4 10 ^3/uL (1.6-8.6); Neutrophils % (auto) 72.6 % (37.0-80.0); White Blood Cell 12.9 10^3/uL (4.4-10.8)
[2022-11-11 10:01] LABS: Alanine Aminotransferase 43 U/L (7-40); Albumin 3.7 g/dL (3.2-4.8); Alkaline Phosphatase 79 U/L (46-116); Anion Gap 5.7 (5-15); Aspartate Aminotransferase 38 U/L (13-40); BUN/Creatinine Ratio 21.1 (10.0-20.0); Bilirubin, Total 0.6 mg/dL (0.2-1.0); Blood Urea Nitrogen 19 mg/dL (9-23); Calcium 8.6 mg/dL (8.5-10.1); Carbon Dioxide 30.3 mmol/L (20-30); Chloride 100 mmol/L (98-107); Glucose 139 mg/dL (74-106); Magnesium 1.8 mg/dL (1.6-2.6); Potassium 3.9 mmol/L (3.5-5.1); Sodium 136 mmol/L (136-145); Total Protein 6.2 g/dL (5.7-8.2)
[2022-11-11] MEDS: ENOXAPARIN SOD 40 MG/0.4 ML SYRINGE SC SCH (10:05)
[2022-11-11] MEDS: cefTRIAXone 1GM/50ML D5W 50 ML IV SCH (10:05)
[2022-11-11] MEDS: CHOLECALCIFEROL (VITD3) 2,000 UNIT CAP/TAB PO SCH (10:05)
[2022-11-11] MEDS: PANTOPRAZOLE 40 MG/10 ML VIAL INJ IV SCH (10:05)
[2022-11-11] MEDS: methylPREDNISolone SOD SUCC 40 MG/ML VL IV SCH (10:05)
[2022-11-11] MEDS: ASCORBIC ACID 1,000 MG TAB PO SCH (10:06)
[2022-11-11] MEDS: ASPirin-EC 81 mg tab PO SCH (10:06)
[2022-11-11] MEDS: CITALOPRAM HYDROBR 20 MG TAB PO SCH (10:06)
[2022-11-11] MEDS: ZINC SULFATE 220mg CAP or TAB PO SCH (10:06)
[2022-11-11] MEDS: ATORVASTATIN 20 MG TAB PO SCH (10:06)
[2022-11-11] MEDS ORDERED: AZIT500T66 PO (10:42)
[2022-11-11] MEDS ORDERED: METH4PAK PO (10:42)
[2022-11-11] MEDS ORDERED: CHOL20007 PO (10:42)
[2022-11-11] MEDS ORDERED: ALBUAER3 IN (10:42)
[2022-11-11] MEDS ORDERED: ASCO500C49 PO (10:42)
[2022-11-11] MEDS ORDERED: ZINC220C10 PO (10:42)
[2022-11-11] MEDS: ALBUTEROL SULF HFA 90MCG INH 200DOSE IN PRN (13:44)
[2022-11-11] MEDS: HYDROcodone-ACET 10/325MG TAB PO PRN (17:20)
== END 2022-11-11 19:00 | disposition home or self-care (01) | DRG 177 ==
LOC: EDBD 15:51 → ER 15:51 → EDUNIT# 15:51 → TELE 22:03 → TELE-EAST 11-04 21:14
PROVIDERS: ADMIT Nurse Practitioner Family; ATTEND Family Medicine
PROC: XW033E5 Introduction of Remdesivir Anti-infective into Peripheral Vein, Percutaneous Approach, New Technology Group 5 (ICD-10-PCS; principal; 2022-11-05)
PROC: 05H933Z Insertion of Infusion Device into Right Brachial Vein, Percutaneous Approach (ICD-10-PCS; 2022-11-09)
PROC: B54MZZA Ultrasonography of Right Upper Extremity Veins, Guidance (ICD-10-PCS; 2022-11-09)
DX: U07.1 COVID-19 (principal); I21.A1 Myocardial infarction type 2; J12.82 Pneumonia due to coronavirus disease 2019; J96.21 Acute and chronic respiratory failure with hypoxia; J44.1 Chronic obstructive pulmonary disease with (acute) exacerbation; J44.0 Chronic obstructive pulmonary disease with (acute) lower respiratory infection; E66.01 Morbid (severe) obesity due to excess calories; E11.65 Type 2 diabetes mellitus with hyperglycemia; E78.5 Hyperlipidemia, unspecified; I11.0 Hypertensive heart disease with heart failure; Z80.1 Family history of malignant neoplasm of trachea, bronchus and lung; Z68.38 Body mass index [BMI] 38.0-38.9, adult; Z87.891 Personal history of nicotine dependence; Z79.4 Long term (current) use of insulin
CPT/HCPCS: 36415; 36600; 71045; 71275; 80048; 80053; 80061; 81001; 82805; 82962; 83036; 83735; 83880; 84443; 84484; 85025; 87426; 87804; 93005; 93306; 94640; C9113; G0378; J0696; J1815; J2405

== ENCOUNTER 2023-05-05 00:08 | Emergency (ER) | payer OTHER ==
[~2023-05-05] VITALS: Ht 180.3 cm; Wt 108.9 kg
[~2023-05-05 00:08] MED LIST changes: +ALBUAER3 IN; +ASCO500C49 PO; +AZIT500T66 PO; +CHOL20007 PO; +METH4PAK PO; +ZINC220C10 PO
[2023-05-05 01:17] VITALS: PULSE 74; RESP 17; TEMP 97.8; O2SAT 94
[2023-05-05 02:04] LABS: Basophils # (auto) 0 10 ^3/uL (0-0.2); Basophils % (auto) 0.3 % (0.0-2.0); Eosinophils # (auto) 0 10 ^3/uL (0-0.8); Eosinophils % (auto) 0.2 % (0.0-7.0); Hematocrit 41.6 % (41.0-53.0); Hemoglobin 13.5 g/dL (13.5-17.5); Lymphocytes % (auto) 15.5 % (10.0-50.0); Mean Corpuscular Hemoglobin 27.6 pg (28.0-32.0); Mean Corpuscular Hgb Conc. 32.5 g/dL (32.0-36.0); Mean Corpuscular Volume 85.2 fL (80.0-100.0); Monocytes # (auto) 0.7 10 ^3/uL (0-1.3); Monocytes % (auto) 5.6 % (0.0-12.0); Neutrophils % (auto) 78.4 % (37.0-80.0); Red Blood Cells 4.89 10^6/uL (4.5-5.90); White Blood Cell 12.8 10^3/uL (4.4-10.8)
[2023-05-05 02:13] LABS: Chloride 101 mmol/L (98-107); Potassium 3.8 mmol/L (3.5-5.1); Sodium 136 mmol/L (136-145)
[2023-05-05 02:14] LABS: Anion Gap 10 (5-15); Calcium 8.8 mg/dL (8.7-10.4); Carbon Dioxide 25 mmol/L (20-30)
[2023-05-05 02:19] LABS: BUN/Creatinine Ratio 14.6 (10.0-20.0); Blood Urea Nitrogen 14 mg/dL (9-23); Glucose 195 mg/dL (74-106)
[2023-05-05 03:00] VITALS: BP 121/54; PULSE 76; RESP 17; O2SAT 95
== END 2023-05-05 03:36 | disposition home or self-care (01) ==
LOC: EDBD 00:08 → ER 00:08
DX: G25.3 Myoclonus (principal); F12.10 Cannabis abuse, uncomplicated; F10.10 Alcohol abuse, uncomplicated; I10 Essential (primary) hypertension; E11.9 Type 2 diabetes mellitus without complications; J44.9 Chronic obstructive pulmonary disease, unspecified; Z87.891 Personal history of nicotine dependence; Z79.2 Long term (current) use of antibiotics; Z79.899 Other long term (current) drug therapy; Z79.4 Long term (current) use of insulin; Y90.9 Presence of alcohol in blood, level not specified
CPT/HCPCS: 36415; 70450; 80048; 85025